=== PATIENT | female | born 1970 | race Caucasian/White ===

== ENCOUNTER → 2016-09-04 | Outpatient (CLI) | payer OTHER | LOC: FIMAGING 11:59 | DX: Z12.31 Encounter for screening mammogram for malignant neoplasm of breast (principal) | CPT/HCPCS: G0202 ==

== ENCOUNTER → 2017-09-09 | Outpatient (CLI) | payer OTHER | LOC: FIMAGING 13:44 | PROVIDERS: ATTEND Midwife | DX: Z12.31 Encounter for screening mammogram for malignant neoplasm of breast (principal) ==

== ENCOUNTER → 2018-04-15 | Outpatient (CLI) | payer OTHER | LOC: FIMAGING 09:42 | PROVIDERS: ATTEND Midwife | DX: N93.9 Abnormal uterine and vaginal bleeding, unspecified (principal); D25.0 Submucous leiomyoma of uterus; D25.1 Intramural leiomyoma of uterus ==

== ENCOUNTER → 2018-05-19 | Outpatient (CLI) | payer OTHER | LOC: FIMAGING 11:54 | PROVIDERS: ATTEND Midwife | DX: N64.4 Mastodynia (principal) ==

== ENCOUNTER → 2018-09-10 | Outpatient (CLI) | payer OTHER | LOC: FIMAGING 08:20 | PROVIDERS: ATTEND Midwife | DX: Z12.31 Encounter for screening mammogram for malignant neoplasm of breast (principal) ==

== ENCOUNTER 2018-11-22 19:00 | Observation (INO) | payer OTHER ==
--- NOTE | 2018-11-22 19:24 | EDPHY ---
H & P Time Seen by Provider: 11/22/18 19:11 HPI/ROS: Chief complaint. Nausea, sent for cardiac workup HPI. 48-year-old female with chest discomfort that began about 6:00 p.m.. She has had 5 days of ear congestion with some nausea. This morning she had tingling to both arms and hands. This evening about 6:00 p.m. She picked up a box of possible is a and felt an expansion in her left chest. It did not radiate. Symptoms lasted 30 sec and then gradually have resolved. She has no pain now. She has had slight tightness in the upper abdomen which she does continue to have. Her discomfort is not change with exertion, breathing, position. She has no history of heart, diabetes or hypertension history. No fever cough. No unusual leg pain or swelling ROS 10 systems were reviewed and negative with the exception of the elements mentioned in the history of present illness Past Medical/Surgical History: Healthy Family history dad had a heart stent in his while he was in his 60s. Grandfather had an [place] Social History: , nonsmoker, no alcohol Smoking Status: Former smoker Physical Exam: General Appearance: Alert well-developed female mild distress. Vital signs are stable Eyes: Pupils equal and round no pallor or injection. ENT, Mouth: Mucous membranes are moist. Respiratory: There are no retractions, lungs are clear to auscultation. Cardiovascular: Regular rate and rhythm. Gastrointestinal: Abdomen is soft and nontender, no masses, bowel sounds normal. Neurological: Awake and alert, sensory and motor exams grossly normal. Skin: Warm and dry, no rashes. Musculoskeletal: Neck is supple nontender. Extremities symmetrical, full range of motion. Psychiatric: Patient is oriented X 3, there is no agitation. Constitutional: Initial Vital Signs Temperature (C) 36.7 C 11/22/18 19:07 Heart Rate 86 11/22/18 19:07 Respiratory Rate 17 11/22/18 19:07 Blood Pressure 164/86 H 11/22/18 19:07 O2 Sat (%) 98 11/22/18 19:07 O2 Delivery Mode Room Air Allergies/Adverse Reactions: erythromycin base [Erythromycin Base] Allergy (Verified 11/22/18 19:06) Home Medications: Medication Instructions Recorded Iron 11/22/18 Medical Decision Making - Diagnostics EKG Interpretation: EKG interpreted by me shows normal sinus rhythm normal interval and axis. QRS is normal there is slight low lateral ST depression V4 through V6. No ST elevation. No arrhythmia. The rate is 82 Repeat EKG at 9:00 p.m. Shows normal sinus rhythm normal interval and axis. QRS is normal. No significant ST elevation or depression. No arrhythmia. The rate is 70 Imaging Results: Imaging Impressions Chest X-Ray 11/22/18 19:24 Impression: No significant radiographic abnormality. Specifically, a source for chest pain is not identified. Procedures: IV normal saline, monitor ED Course/Re-evaluation: Re-evaluation 9:20 p.m.. Patient is stable. Patient and I discussed imaging lab EKG findings. We discussed the initial EKG with lateral ST depression that has resolved. She has normal troponin x2. We discussed treatment plan including recommendation for admission. She expresses understanding and agreement I consulted discussed the case with Dr. Stevens, hospitalist, who agrees to the admission Differential Diagnosis: Chest pain with transient EKG changes. Some risk factors. Heart score patient gets 1 for age, 1 for risk factors, [address] depression. Total 4 - Data Points Laboratory Results: Laboratory Results 11/22/18 19:20 11/22/18 19:20 11/22/18 11/22/18 11/22/18 21:08 19:28 19:20 WBC RBC Hgb Hct MCV MCH MCHC RDW Plt Count MPV Neut % (Auto) Lymph % (Auto) [place] % (Auto) Eos % (Auto) Baso % (Auto) Nucleat RBC Rel Count Absolute Neuts (auto) Absolute Lymphs (auto) Absolute Monos (auto) Absolute Eos (auto) Absolute Basos (auto) Absolute Nucleated RBC Immature Gran % Immature Gran # Sodium 137 mEq/L mEq/L (135-145) Potassium 3.3 mEq/L L mEq/L (3.5-5.2) Chloride 105 mEq/L mEq/L (97-110) Carbon Dioxide 21 mEq/l L mEq/l (22-31) Anion Gap 11 mEq/L mEq/L (6-14) BUN 18 mg/dL mg/dL (7-23) Creatinine 0.6 mg/dL mg/dL (0.6-1.0) Estimated GFR > 60 Glucose 89 mg/dL mg/dL (70-100) Calcium 9.4 mg/dL mg/dL (8.5-10.4) Total Bilirubin 0.4 mg/dL mg/dL (0.1-1.4) Conjugated Bilirubin 0.1 mg/dL mg/dL (0.0-0.5) Unconjugated Bilirubin 0.3 mg/dL mg/dL (0.0-1.1) AST 28 IU/L IU/L (14-46) ALT 38 IU/L IU/L (9-52) Alkaline Phosphatase 59 IU/L IU/L (38-126) POC Troponin I 0.00 ng/mL ng/mL 0.04 ng/mL ng/mL (0.00-0.08) (0.00-0.08) Total Protein 7.3 g/dL g/dL (6.3-8.2) Albumin 4.7 g/dL g/dL (3.5-5.0) Lipase 123 IU/L IU/L (23-300) 11/22/18 19:20 WBC 7.71 10^3/uL 10^3/uL (3.80-9.50) RBC 4.51 10^6/uL 10^6/uL (4.18-5.33) Hgb 13.4 g/dL g/dL (12.6-16.3) Hct 40.0 % % (38.0-47.0) MCV 88.7 fL fL (81.5-99.8) MCH 29.7 pg pg (27.9-34.1) MCHC 33.5 g/dL g/dL (32.4-36.7) RDW 13.8 % % (11.5-15.2) Plt Count 282 10^3/uL 10^3/uL (150-400) MPV 9.6 fL fL (8.7-11.7) Neut % (Auto) 51.4 % % (39.3-74.2) Lymph % (Auto) 39.2 % % (15.0-45.0) [place] % (Auto) 7.8 % % (4.5-13.0) Eos % (Auto) 0.9 % % (0.6-7.6) Baso % (Auto) 0.6 % % (0.3-1.7) Nucleat RBC Rel Count 0.0 % % (0.0-0.2) Absolute Neuts (auto) 3.96 10^3/uL 10^3/uL (1.70-6.50) Absolute Lymphs (auto) 3.02 10^3/uL H 10^3/uL (1.00-3.00) Absolute Monos (auto) 0.60 10^3/uL 10^3/uL (0.30-0.80) Absolute Eos (auto) 0.07 10^3/uL 10^3/uL (0.03-0.40) Absolute Basos (auto) 0.05 10^3/uL 10^3/uL (0.02-0.10) Absolute Nucleated RBC 0.00 10^3/uL 10^3/uL (0-0.01) Immature Gran % 0.1 % % (0.0-1.1) Immature Gran # 0.01 10^3/uL 10^3/uL (0.00-0.10) Sodium Potassium Chloride Carbon Dioxide Anion Gap BUN Creatinine Estimated GFR Glucose Calcium Total Bilirubin Conjugated Bilirubin Unconjugated Bilirubin AST ALT Alkaline Phosphatase POC Troponin I Total Protein Albumin Lipase Point of Care Test Results: Chemistry 11/22/18 11/22/18 21:08 19:28 POC Troponin I 0.00 ng/mL ng/mL 0.04 ng/mL ng/mL (0.00-0.08) (0.00-0.08) Departure - Departure Disposition: [facility] Inpatient Acute Clinical Impression: Chest pain Qualifiers: Chest pain type: unspecified Qualified Code(s): R07.9 - Chest pain, unspecified Condition: Fair Referrals: Jeanne Hagen MD [Primary Care Provider] - As per Instructions
[2018-11-22 19:35] LABS: PLATELET COUNT 282 10^3/uL (150-400)
--- NOTE | 2018-11-22 21:04 | CPEKG ---
Test Reason : OPEN Blood Pressure : / mmHG Vent. Rate : 082 BPM Atrial Rate : 081 BPM P-R Int : 162 ms QRS Dur : 095 ms QT Int : 383 ms P-R-T Axes : 087 058 039 degrees QTc Int : 448 ms Sinus rhythm Right atrial enlargement Minimal ST depression, anterolateral leads Confirmed by Yuli Tan ([id number]) on 11/22/2018 9:03:58 PM Referred By: YULI TAN Confirmed By:Yuli Tan
[2018-11-22] MEDS ORDERED: POTASSIUM CL 20 MEQ TAB PO ONE (21:33)
--- NOTE | 2018-11-22 21:36 | CPEKG ---
Test Reason : OPEN Blood Pressure : / mmHG Vent. Rate : 070 BPM Atrial Rate : 071 BPM P-R Int : 167 ms QRS Dur : 096 ms QT Int : 405 ms P-R-T Axes : 082 035 016 degrees QTc Int : 437 ms Sinus arrhythmia Confirmed by Yuli Tan ([id number]) on 11/22/2018 9:35:18 PM Referred By: YULI TAN Confirmed By:Yuli Tan
--- NOTE | 2018-11-22 22:30 | GHP ---
[f rep st] HISTORY AND PHYSICAL DATE OF ADMISSION: 11/22/2018 CHIEF COMPLAINT: Chest pain. HISTORY OF PRESENT ILLNESS: A 48-year-old female with no cardiac history, presents with chest pain. She has been somewhat stressed with her out of town. She has had a few days of not feeling quite right with some nausea. Today, she was taking care of her son, when she bent forward, had a sudden attack of left-sided chest pain, which was, she describes as, strong in intensity, somewhat tight versus stabbing, resolved after about 30 seconds. She , thus, presented to the emergency department. She has no cardiac risk factors. Her father did have coronary artery disease. PAST MEDICAL/SURGICAL HISTORY: Anemia. MEDICATIONS: Iron. ALLERGIES: Erythromycin. SOCIAL HISTORY: She drinks wine. She quit smoking 10 years ago. is out of town. FAMILY HISTORY: As above. REVIEW OF SYSTEMS: A 10-point review of systems is conducted and is negative except per HPI. PHYSICAL EXAM: VITAL SIGNS: Blood pressure 130/80, heart rate 70, respiration rate 18, satting 98% on room air, temperature 36.6. GENERAL: The patient is a pleasant female, who appears somewhat anxious. HEENT: Shows her to be normocephalic, atraumatic. CARDIOVASCULAR: Shows a regular rate and rhythm. No murmurs, rubs, or gallops. No lower extremity edema. PULMONARY: Lungs clear to auscultation bilaterally. ABDOMEN: Soft, nontender, nondistended. SKIN: Shows no rash. : Shows no [place]. NEUROLOGIC: Shows her to be alert and oriented x3. She is moving all extremities. PSYCHIATRIC: Shows normal mood and affect. LABS: Notable for a potassium of 3.3. Otherwise normal. DATA: 1. Discussed with Dr. Tan. We will admit to PCU. 2. I personally viewed and interpreted her EKG. She had two of them. The initial one showed [address] depression in approximately leads III to leads V5. Followup did not show any. 3. Chest x-ray is negative. IMPRESSION AND PLAN: Chest pain: Her heart score is [address] depressions , history of coronary artery disease in the family and her age. We will trend her troponins overnight. Check an EKG, treadmill test tomorrow. This is a high -risk diagnosis. She will be monitored on cardiac telemetry overnight. /[id number]/MODL MTDD
[2018-11-23 11:42] VITALS: BP 111/73
--- NOTE | 2018-11-23 12:37 | CPR ---
[f rep st] NONINVASIVE CARDIAC PROCEDURE REPORT PROCEDURE: EXERCISE TREADMILL STRESS TEST REPORT. ORDERING PHYSICIAN: Junior Stevens MD REASON FOR TEST: 1. Chest discomfort. 2. Family history of coronary artery disease. Resting EKG shows a sinus tachycardia with a ventricular rate of 100. She has no arrhythmias. STRESS PORTION: She was exercised according to the Juan J protocol for a total of 8 minutes. Peak bl ood pressure 170/60, peak heart rate 170, MET level 9.1. She had no chest pain or arrhythmias during the stress portion. She did complain of shortness of breath with peak exertion. No ischemic change s were noted. RECOVERY: She did spontaneously recover. Her blood pressure returned to 112/80, heart rate 105. No EKG changes. Tracing was reviewed with Dr. Jarrell Juarez. PLAN: At this time, she is stable to return to her room. /[id number]/MODL
--- NOTE | 2018-11-23 14:18 | GDS ---
[f rep st] DISCHARGE SUMMARY DISCHARGE DIAGNOSES: 1. Atypical chest pain, resolved. 2. Hypokalemia, mild. HISTORY OF PRESENT ILLNESS: For details, please see history and physical dated November 22, 2018. 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 Her father had a history of coronary disease, otherwise, she has no cardiac risk factors. She was a dmitted to the hospital for further evaluation. HOSPITAL COURSE: Patient was admitted to the progressive care unit. Her initial EKG showed mild ST depression, though repeat EKG was normal. She had negative troponins x3. She underwent exercise claudia admill stress test on the day of discharge. She had no chest pain or arrhythmias during the stress p ortion. There were no ischemic EKG changes noted. She remains chest pain free. I suspect her chest pain etiology may be more likely GI in origin, rather than cardiac. She may have had esophageal spa sm. We will start her on proton pump inhibitor therapy at discharge and she can follow up with her [facility] physician. DISPOSITION: Patient is discharged home in stable condition. FOLLOWUP: Dr. Hagen. DISCHARGE MEDICATIONS: Please see [email or web address] for completed outpatient occasion list. New medications on discharge, include omeprazole 20 mg p.o. daily #30 no refills. /[id number]/MODL
--- NOTE | 2018-11-23 16:06 | ASDISCHSUM ---
Discharge Information Plan Status:Home with No Needs Medically Cleared to Leave:11/23/2018 Discharge Date:11/23/2018 02:20 PM CM D/C Disposition:Home, Routine, Self-Care ADT D/C Disposition:Home, Routine, Self-Care Projected Discharge Date:11/23/2018 02:20 PM Transportation at D/C: Discharge Delay Reason: Follow-Up Date:11/23/2018 02:20 PM Discharge Slot: Final Diagnosis: Placement Information Patient Contact Information Contact Name:KE Relationship: Address:[address] [address] City:[place] Alternate Phone: State/Zip Code:[place] [address] Email: Financial Information Financial Class:[facility] Primary [facility] Desc:[facility] Primary Plan Number:[id number] Secondary Plan Desc: Secondary Plan Number: Assessment Information LACE LACE Length of stay for Answers: Less than 1 day current admission Acuity / Level of Answers: No Care: Did the patient have an inpatient admission? # of Emergency department Answers: 1-2 visits in the last 6 months Score: 1 Date Signed: 11/23/2018 04:05 PM Electronically Signed By:Arpita Murray RN Intervention Information Intervention Type:*Incorrect Registration Date of Service:11/23/2018 09:18 AM Patient Type:Inpatient Staff Member:PAULETTE De Dios, Cynthia Hours: Discipline: Severity: Comment:
== END 2018-11-23 14:20 | disposition home or self-care (01) ==
LOC: INTOOBSV 21:31 → F2W 23:03
PROVIDERS: ADMIT Student in an Organized Health Care Education/Training Program; ATTEND Hospitalist
DX: R07.9 Chest pain, unspecified (principal); E87.6 Hypokalemia; Z87.891 Personal history of nicotine dependence; Z82.49 Family history of ischemic heart disease and other diseases of the circulatory system
CPT/HCPCS: 71045; 93005; 93017; 99285; G0378; 84484-ER